=== PATIENT | male | born 1995 | race Hispanic/Latino ===

== ENCOUNTER → 2017-09-21 | Day surgery (SDC) | payer BC, MEDICARE ==
[~2017-09-21] MED LIST: ALINIA500 MG PO; CARAFATE1 GM/10 ML PO; DICYCLOMINE HCL20 MG PO; ENTERAGAM PO; FENTANYL CITRATE/PF 100MCG/2 ML INJ ONE; MIDAZOLAM HCL 2 MG/2 ML VIAL ONE; PANTOPRAZOLE SO40 MG PO; PROPOFOL IV EMULSION 10 MG/ML 20 ML VIAL IV ONE; PROPOFOL IV EMULSION 10 MG/ML 50 ML VIAL ONE; ZOFRAN ODT4 MG PO
== END | disposition home or self-care (01) ==
LOC: OR 08:29
PROVIDERS: ATTEND Internal Medicine Gastroenterology
DX: K59.1 Functional diarrhea (principal); K29.70 Gastritis, unspecified, without bleeding; K44.9 Diaphragmatic hernia without obstruction or gangrene; K62.89 Other specified diseases of anus and rectum; F84.0 Autistic disorder
CPT/HCPCS: 43239; 45380; 88305; 88312; J2250